=== PATIENT | male | born 1990 | race Caucasian/White ===

== ENCOUNTER 2016-10-18 21:39 | Emergency (ER) | payer SELFPAY ==
[2016-10-18] MEDS ORDERED: TDAP ADULT 0.5 ML INJ (BOOSTRIX) IM ONE (23:27)
--- NOTE | 2016-10-18 23:31 | EDPHY ---
H & P Time Seen by Provider: 10/18/16 22:09 HPI/ROS: CHIEF COMPLAINT: Nasal laceration HISTORY OF PRESENT ILLNESS: This is a 26-year-old male presenting to the emergency department reports playing hockey around 2030 was hit to the face with a hockey-stick, denies any LOC no epistaxis no headache. No other complaints REVIEW OF SYSTEMS: Constitutional: No fever, no chills. Eyes: No discharge. No blurred vision ENT: No sore throat. Has a 1 cm laceration noted to the bridge of nose Cardiovascular: No chest pain, no palpitations. Respiratory: No cough, no shortness of breath. Gastrointestinal: No abdominal pain, no nausea vomiting Musculoskeletal: No back pain. Skin: No rashes. Neurological: No headache. Smoking Status: Never smoked Physical Exam: General Appearance: Alert and no distress. HEENT: Normocephalic. 1 cm laceration noted to the bridge of nose, no nasal swelling no obvious deformity Pupils equal and round no injection. Respiratory: Chest is nontender, lungs are clear to auscultation. Cardiac: regular rate and rhythm Gastrointestinal: Abdomen is soft and nontender, no masses, bowel sounds normal. Musculoskeletal: Vertebral cervical spine nontender on palpation full range of motion Extremities: full range of motion and are nontender. Skin: No rashes or lesions. Constitutional: Initial Vital Signs Temperature (C) 36.7 C 10/18/16 22:04 Heart Rate 93 10/18/16 22:04 Respiratory Rate 18 10/18/16 22:04 Blood Pressure 131/62 H 10/18/16 22:04 O2 Sat (%) 98 10/18/16 22:04 O2 Delivery Mode Room Air Allergies/Adverse Reactions: No Known Allergies Allergy (Unverified 10/18/16 22:04) Home Medications: Medication Instructions Recorded NK [No Known Home Meds] 10/18/16 Medical Decision Making Procedures: Procedure: Laceration repair. Verbal consent was obtained from the patient. 1cm laceration on the bridge of nose. 0.5% bupivacaine without epinephrine 3 mL local infiltrate. The wound was irrigated. There were no deep structures involved. The wound was repaired 5 -0 Ethilon #4 sutures placed The procedure was performed by myself. A dressing was applied by our EMT. ED Course/Re-evaluation: Discussed the plan of care: Wound irrigation, suture repair, tetanus vaccine 2300: Suture repair patient tolerated procedure, discharge home---> stable, discussed discharge instructions Differential Diagnosis: Other differential diagnosis considered but not limited to nasal fracture, no foreign body, and concussion - Data Points Medications Given: Discontinued Medications Diphtheria/Tetanus/Acell Pertussis (Boostrix) 0.5 ml IM .ONCE ONE Stop: 10/18/16 23:28 Last Admin: 10/18/16 23:57 Dose: 0.5 ml Departure - Departure Disposition: Home, Routine, Self-Care Clinical Impression: Laceration Condition: Good Instructions: Care For Your Stitches (ED), Laceration (ED) Additional Instructions: 1. Have sutures removed in 5 days 2. Monitor for any signs of infection, such as: Redness swelling drainage if this should occur return to the ER 3. No [place] water or river water exposure, as this can increase your risk for infection 4. Ibuprofen 600 mg every 6-8 hours as needed Referrals: NONE *PRIMARY CARE P,. [Primary Care Provider] - As per Instructions [facility],. [Clinic] - As per Instructions
[2016-10-19 00:14] VITALS: BP 117/59; PULSE 67; RESP 16; TEMP 97.7; O2SAT 95
== END 2016-10-19 00:14 | disposition home or self-care (01) ==
PROC: 09QKXZZ Repair Nasal Mucosa and Soft Tissue, External Approach (ICD-10-PCS; principal; 2016-10-18)
DX: S01.21XA Laceration without foreign body of nose, initial encounter (principal); Z23 Encounter for immunization; W21.211A Struck by field hockey stick, initial encounter; Y99.8 Other external cause status; Y93.65 Activity, lacrosse and field hockey